=== PATIENT | male | born 1930 | race Caucasian/White ===

== ENCOUNTER 2021-03-18 10:53 | Inpatient (IN) | payer MEDICARE ==
[2021-03-18 11:42] LABS: #Lymphocytes 0.7 thou/uL (1.20-3.40); #Monocytes 0.5 thou/uL (0.11-0.59); #Neutrophils 8.6 thou/uL (1.40-6.50); %Eosinophils 0.1 % (0.0-10.0); %Monocytes 5.1 % (0.0-10.0); %Neutrophils 87.8 % (42.0-75.0); Hemoglobin 11.3 g/dL (14.0-18.0); Mean Corpuscular HGB CONC 32.3 g/dL (32.0-36.0); Mean Corpuscular Hemoglobin 27.4 pg (27.0-31.0); Mean Platelet Volume 10.2 fL (7.4-10.4); Platelet Count 112 thou/uL (130-400); RBC Distribution Width 18.7 % (11.5-14.5); Red Blood Cell (RBC) Count 4.13 mill/uL (4.70-6.10); White Blood Cell (WBC) Count 9.9 thou/uL (4.8-10.8)
[2021-03-18] MEDS ORDERED: Iopamidol-370 76% 500 ML 1 ML ONE (11:54)
[2021-03-18 12:06] LABS: ALT (SGPT) 19 U/L (8-55); AST (SGOT) 23 U/L (5-34); Albumin 3.4 g/dL (3.4-4.8); Alkaline Phosphatase 203 U/L (40-110); Anion Gap 14 mmol/L (10-20); BUN (Urea Nitrogen) 21 mg/dL (8.4-25.7); Bilirubin, Total 1.2 mg/dL (0.2-1.2); Calc. Creatinine Clearance 0 mL/min (70-130); Calcium 9.2 mg/dL (7.8-10.44); Carbon Dioxide 25 mmol/L (23-31); Chloride 105 mmol/L (98-107); Globulin 2.9 g/dL (2.4-3.5); Glucose 205 mg/dL (83-110); Protein, Total 6.3 g/dL (5.8-8.1); Sodium 140 mmol/L (136-145)
[2021-03-18 12:37] LABS: CKMB 1.7 ng/mL (0-6.6)
[2021-03-18] MEDS ORDERED: Aspirin Chewable 81 MG TAB ONE (13:52)
[2021-03-18] MEDS ORDERED: Furosemide 40 MG/4 ML VIAL ONE (13:52)
[2021-03-18 15:29] LABS: Troponin I 0.032 ng/mL (< 0.028)
[2021-03-18] MEDS ORDERED: Dextrose 5% in Water 1,000 ML IV PRN (15:34)
[2021-03-18] MEDS ORDERED: Dextrose 50% Abboject 50 ML SYRINGE SLOW IVP PRN (15:34)
[2021-03-18] MEDS ORDERED: Senokot S 8.6-50 MG TAB PO PRN (15:38)
[2021-03-18] MEDS ORDERED: Bisacodyl 5 MG TAB PO PRN (15:38)
[2021-03-18] MEDS ORDERED: Ondansetron PF 4 MG/2 ML Vial IVP PRN (15:38)
[2021-03-18] MEDS ORDERED: Acetaminophen 325 MG TAB PO PRN (15:38)
[2021-03-18] MEDS ORDERED: Ondansetron ODT 4 MG TAB PO PRN (15:38)
[2021-03-18] MEDS ORDERED: HumaLOG 300 UNITS/3 ML VIAL SC PRN (15:40)
[2021-03-18] MEDS ORDERED: cefTRIAXone Sodium 1,000 MG in Syringe 0 ML IVPB SCH (15:45)
[2021-03-18] MEDS ORDERED: Doxycycline 100 MG CAP PO SCH (16:00)
[2021-03-18 18:05] LABS: Troponin I 0.034 ng/mL (< 0.028)
[2021-03-18] MEDS: cefTRIAXone\\ROCEPHIN 1 GM, Admixture Fee 1 EACH in Sodium Chloride 0.9% 100 ML IVPB SCH (18:05)
[2021-03-18] MEDS: Doxycycline 100 MG CAP PO SCH (20:39)
[2021-03-19 05:26] LABS: #Monocytes 0.7 thou/uL (0.11-0.59); #Neutrophils 8.8 thou/uL (1.40-6.50); %Basophils 0.1 % (0.0-1.0); %Eosinophils 0.1 % (0.0-10.0); %Lymphocytes 9.7 % (21.0-51.0); %Monocytes 6.5 % (0.0-10.0); %Neutrophils 83.6 % (42.0-75.0); Hemoglobin 10.9 g/dL (14.0-18.0); Mean Corpuscular HGB CONC 30.8 g/dL (32.0-36.0); Mean Corpuscular Hemoglobin 26.6 pg (27.0-31.0); Mean Corpuscular Volume 86.1 fL (78.0-98.0); Mean Platelet Volume 9.7 fL (7.4-10.4); Platelet Count 131 thou/uL (130-400); RBC Distribution Width 18.7 % (11.5-14.5); Red Blood Cell (RBC) Count 4.09 mill/uL (4.70-6.10); White Blood Cell (WBC) Count 10.5 thou/uL (4.8-10.8)
[2021-03-19 05:52] LABS: Anion Gap 11 mmol/L (10-20); BUN (Urea Nitrogen) 28 mg/dL (8.4-25.7); Calc. Creatinine Clearance 58 mL/min (70-130); Calcium 8.9 mg/dL (7.8-10.44); Carbon Dioxide 28 mmol/L (23-31); Chloride 105 mmol/L (98-107); Glucose 142 mg/dL (83-110); Iron 16 ug/dL (65-175); Iron Binding Capacity, Total 255 mcg/dL (261-462); Potassium 3.9 mmol/L (3.5-5.1); Sodium 140 mmol/L (136-145); Transferrin, Serum 204 mg/dL (163-344)
[2021-03-19 06:12] LABS: Ferritin 36.19 ng/mL (22-322); Thyroid Stimulating Hormone 0.7613 uIU/mL (0.35-4.94)
[2021-03-19] MEDS ORDERED: Levothyroxine Sodium 50 MCG TAB PO SCH (08:30)
[2021-03-19] MEDS: Allopurinol 100 MG TAB PO SCH (09:50)
[2021-03-19] MEDS: Doxycycline 100 MG CAP PO SCH ×2 (09:50→20:30)
[2021-03-19] MEDS: Aspirin Chewable 81 MG TAB PO SCH (09:51)
[2021-03-19] MEDS: Sotalol HCl 80 MG TAB PO SCH ×2 (09:51→20:31)
[2021-03-19] MEDS: Finasteride 5 MG TAB PO SCH (09:51)
[2021-03-19] MEDS ORDERED: Furosemide 40 MG/4 ML VIAL SLOW IVP SCH (14:30)
[2021-03-19] MEDS: Glimepiride 1 MG TAB PO SCH (15:07)
[2021-03-19] MEDS: cefTRIAXone\\ROCEPHIN 1 GM, Admixture Fee 1 EACH in Sodium Chloride 0.9% 100 ML IVPB SCH (18:03)
[2021-03-19] MEDS: Atorvastatin Calcium 40 MG TAB PO SCH (20:30)
[2021-03-19] MEDS: guaiFENesin ER 600 MG TAB PO SCH (20:30)
[2021-03-19] MEDS: Tamsulosin HCl 0.4 MG CAP PO SCH (20:31)
[2021-03-20] MEDS: Levothyroxine Sodium 50 MCG TAB PO SCH (06:14)
[2021-03-20] MEDS: Sotalol HCl 80 MG TAB PO SCH ×2 (08:37→21:57)
[2021-03-20] MEDS: Aspirin Chewable 81 MG TAB PO SCH (08:37)
[2021-03-20] MEDS: guaiFENesin ER 600 MG TAB PO SCH ×2 (08:38→21:57)
[2021-03-20] MEDS: Finasteride 5 MG TAB PO SCH (08:38)
[2021-03-20] MEDS: Doxycycline 100 MG CAP PO SCH ×2 (08:38→21:57)
[2021-03-20] MEDS: Allopurinol 100 MG TAB PO SCH (08:38)
[2021-03-20] MEDS: Glimepiride 1 MG TAB PO SCH (08:38)
[2021-03-20] MEDS ORDERED: Furosemide 40 MG/4 ML VIAL SLOW IVP SCH ×2 (09:30→14:00)
[2021-03-20] MEDS ORDERED: Ferrous Sulfate 325 MG TAB PO SCH (10:15)
[2021-03-20] MEDS: cefTRIAXone\\ROCEPHIN 1 GM, Admixture Fee 1 EACH in Sodium Chloride 0.9% 100 ML IVPB SCH (15:54)
[2021-03-20] MEDS: Ferrous Sulfate 325 MG TAB PO SCH (15:54)
[2021-03-20] MEDS ORDERED: Communication Order-Pharmacy FS SCH (17:00)
[2021-03-20] MEDS: Atorvastatin Calcium 40 MG TAB PO SCH (21:57)
[2021-03-20] MEDS: Tamsulosin HCl 0.4 MG CAP PO SCH (21:58)
[2021-03-21 06:07] LABS: Anion Gap 7 mmol/L (10-20); BUN (Urea Nitrogen) 29 mg/dL (8.4-25.7); Calc. Creatinine Clearance 60 mL/min (70-130); Calcium 8.9 mg/dL (7.8-10.44); Carbon Dioxide 35 mmol/L (23-31); Chloride 101 mmol/L (98-107); Glucose 88 mg/dL (83-110); Potassium 3.4 mmol/L (3.5-5.1); Sodium 140 mmol/L (136-145)
[2021-03-21] MEDS: Levothyroxine Sodium 50 MCG TAB PO SCH (06:08)
[2021-03-21] MEDS: Ferrous Sulfate 325 MG TAB PO SCH ×2 (06:08→15:44)
[2021-03-21] MEDS: Doxycycline 100 MG CAP PO SCH ×2 (06:09→20:48)
[2021-03-21] MEDS: Aspirin Chewable 81 MG TAB PO SCH (06:09)
[2021-03-21] MEDS: Allopurinol 100 MG TAB PO SCH (06:09)
[2021-03-21] MEDS: guaiFENesin ER 600 MG TAB PO SCH ×2 (06:10→20:48)
[2021-03-21] MEDS: Finasteride 5 MG TAB PO SCH (06:10)
[2021-03-21] MEDS: Sotalol HCl 80 MG TAB PO SCH ×2 (06:10→20:48)
[2021-03-21] MEDS ORDERED: Potassium Chloride 20 MEQ TAB PO SCH (08:00)
[2021-03-21] MEDS: Furosemide 40 MG/4 ML VIAL SLOW IVP SCH ×2 (08:45→12:48)
[2021-03-21] MEDS: Cefdinir 300 MG CAP PO SCH ×2 (08:45→20:48)
[2021-03-21] MEDS ORDERED: Communication Order-Pharmacy FS SCH (16:45)
[2021-03-21] MEDS: Atorvastatin Calcium 40 MG TAB PO SCH (20:48)
[2021-03-21] MEDS: Tamsulosin HCl 0.4 MG CAP PO SCH (20:49)
[2021-03-21] MEDS ORDERED: acetaZOLAMIDE Sodium 500 mg Vial IVP SCH (21:15)
[2021-03-22] MEDS: Levothyroxine Sodium 50 MCG TAB PO SCH (06:00)
[2021-03-22] MEDS: Allopurinol 100 MG TAB PO SCH (06:00)
[2021-03-22] MEDS: Aspirin Chewable 81 MG TAB PO SCH (06:00)
[2021-03-22] MEDS: Cefdinir 300 MG CAP PO SCH (06:00)
[2021-03-22] MEDS: Finasteride 5 MG TAB PO SCH (06:01)
[2021-03-22] MEDS: Doxycycline 100 MG CAP PO SCH (06:01)
[2021-03-22] MEDS: guaiFENesin ER 600 MG TAB PO SCH ×2 (06:01→21:10)
[2021-03-22] MEDS: Sotalol HCl 80 MG TAB PO SCH (06:01)
[2021-03-22] MEDS: Ferrous Sulfate 325 MG TAB PO SCH ×2 (07:41→18:16)
[2021-03-22] MEDS: Furosemide 40 MG/4 ML VIAL SLOW IVP SCH (07:41)
[2021-03-22] MEDS ORDERED: Heparin 10,000 UNITS/ 10 ML VIAL ONE (11:40)
[2021-03-22] MEDS ORDERED: Nitroglycerin 100MG/250ML BOT 0 ML ONE (11:40)
[2021-03-22] MEDS ORDERED: Lidocaine 1% (PF) 30 ML VIAL ONE (11:40)
[2021-03-22] MEDS ORDERED: Verapamil 5 MG/2 ML VIAL ONE (11:40)
[2021-03-22] MEDS ORDERED: Iopamidol 370 76% 100 ML VIAL ONE (11:49)
[2021-03-22] MEDS ORDERED: Iopamidol 370 76% 50 ML VIAL FS ONE (11:49)
[2021-03-22] MEDS ORDERED: Midazolam HCl 2 mg/2 ml Vial ONE (12:32)
[2021-03-22 13:59] VITALS: BMI 25.7
[2021-03-22] MEDS ORDERED: Sodium Chloride 0.9% 200 ML IV PRN (14:26)
[2021-03-22] MEDS ORDERED: Nitroglycerin 0.4 MG TAB (25 Tab Bottle) SL PRN (14:26)
[2021-03-22] MEDS ORDERED: Acetaminophen/Codeine 30-300mg Tablet PO PRN ×2 (14:26)
[2021-03-22] MEDS: Clopidogrel Bisulfate 75 MG TAB PO SCH (14:33)
[2021-03-22] MEDS: Atorvastatin Calcium 40 MG TAB PO SCH (21:10)
[2021-03-22] MEDS: Tamsulosin HCl 0.4 MG CAP PO SCH (21:10)
[2021-03-23] MEDS: Levothyroxine Sodium 50 MCG TAB PO SCH (05:15)
[2021-03-23] MEDS ORDERED: Furosemide 40 MG TAB PO SCH (07:30)
[2021-03-23] MEDS: Aspirin Chewable 81 MG TAB PO SCH (08:12)
[2021-03-23] MEDS: Ferrous Sulfate 325 MG TAB PO SCH (08:13)
[2021-03-23] MEDS: Finasteride 5 MG TAB PO SCH (08:13)
[2021-03-23] MEDS: guaiFENesin ER 600 MG TAB PO SCH (08:13)
[2021-03-23] MEDS: Allopurinol 100 MG TAB PO SCH (08:13)
[2021-03-23 12:51] VITALS: BP 128/64; TEMP 97.7
[2021-03-23] MEDS: Clopidogrel Bisulfate 75 MG TAB PO SCH (14:12)
[2021-03-23] MEDS ORDERED: Carvedilol 6.25 MG TAB PO SCH (17:00)
== END 2021-03-23 15:33 | disposition home or self-care (01) | DRG 287 ==
LOC: ERS 10:53 → ERHOLD 12:46 → INTOOBSV 12:46 → 2SW 13:30 → OBSVTOIN 03-21 11:29
PROVIDERS: ADMIT Internal Medicine; ATTEND Internal Medicine
PROC: 4A023N7 Measurement of Cardiac Sampling and Pressure, Left Heart, Percutaneous Approach (ICD-10-PCS; principal; 2021-03-22)
PROC: B2111ZZ Fluoroscopy of Multiple Coronary Arteries using Low Osmolar Contrast (ICD-10-PCS; 2021-03-22)
PROC: B2181ZZ Fluoroscopy of Left Internal Mammary Bypass Graft using Low Osmolar Contrast (ICD-10-PCS; 2021-03-22)
PROC: B2131ZZ Fluoroscopy of Multiple Coronary Artery Bypass Grafts using Low Osmolar Contrast (ICD-10-PCS; 2021-03-22)
PROC: B2151ZZ Fluoroscopy of Left Heart using Low Osmolar Contrast (ICD-10-PCS; 2021-03-22)
PROC: B3101ZZ Fluoroscopy of Thoracic Aorta using Low Osmolar Contrast (ICD-10-PCS; 2021-03-22)
PROC: 4A033BC Measurement of Arterial Pressure, Coronary, Percutaneous Approach (ICD-10-PCS; 2021-03-22)
DX: I11.0 Hypertensive heart disease with heart failure (principal); I44.2 Atrioventricular block, complete; I48.20 Chronic atrial fibrillation, unspecified; E87.3 Alkalosis; E44.1 Mild protein-calorie malnutrition; E78.00 Pure hypercholesterolemia, unspecified; E78.5 Hyperlipidemia, unspecified; E11.9 Type 2 diabetes mellitus without complications; E03.9 Hypothyroidism, unspecified; I08.0 Rheumatic disorders of both mitral and aortic valves; I25.10 Atherosclerotic heart disease of native coronary artery without angina pectoris; D52.9 Folate deficiency anemia, unspecified; D69.6 Thrombocytopenia, unspecified; Z96.651 Presence of right artificial knee joint; I42.9 Cardiomyopathy, unspecified; I50.23 Acute on chronic systolic (congestive) heart failure; Z79.84 Long term (current) use of oral hypoglycemic drugs; Z79.82 Long term (current) use of aspirin; Z79.890 Hormone replacement therapy; Z79.899 Other long term (current) drug therapy; Z95.1 Presence of aortocoronary bypass graft; Z87.891 Personal history of nicotine dependence; Z95.0 Presence of cardiac pacemaker; Z68.25 Body mass index [BMI] 25.0-25.9, adult
CPT/HCPCS: 36415; 36416; 71045; 71275; 80048; 80053; 82553; 82607; 82728; 82746; 83540; 83550; 83880; 84075; 84443; 84466; 84484; 85025; 85379; 87070; 87205; 93005; 93306; 93459; 93567; 93798; 96365; 96374; 96375; 99152; 99153; G0378; J0696; J1120; J1644; J1940; J2001; J2250; J3490; Q9967; U0003; U0005

== ENCOUNTER 2021-04-11 04:08 | Inpatient (IN) | payer MEDICARE ==
[2021-04-16 11:52] VITALS: BMI 25.1
[2021-04-18 09:47] VITALS: TEMP 97.9
[2021-04-18 12:36] VITALS: BP 121/57
== END 2021-04-18 15:35 | disposition home health service (06) | DRG 378 ==
LOC: ERS 04:08 → ERHOLD 05:55 → ONC 11:49 → OBSVTOIN 04-12 15:30 → CCU 04-15 23:10 → ONC 04-16 12:17
PROVIDERS: ADMIT Internal Medicine; ATTEND Emergency Medicine
PROC: 0DB78ZX Excision of Stomach, Pylorus, Via Natural or Artificial Opening Endoscopic, Diagnostic (ICD-10-PCS; principal; 2021-04-12)
PROC: 0DBK8ZX Excision of Ascending Colon, Via Natural or Artificial Opening Endoscopic, Diagnostic (ICD-10-PCS; 2021-04-12)
PROC: 0DBC8ZX Excision of Ileocecal Valve, Via Natural or Artificial Opening Endoscopic, Diagnostic (ICD-10-PCS; 2021-04-12)
PROC: 0W3P8ZZ Control Bleeding in Gastrointestinal Tract, Via Natural or Artificial Opening Endoscopic (ICD-10-PCS; 2021-04-12)
PROC: 0DB38ZX Excision of Lower Esophagus, Via Natural or Artificial Opening Endoscopic, Diagnostic (ICD-10-PCS; 2021-04-12)
PROC: 0DJD8ZZ Inspection of Lower Intestinal Tract, Via Natural or Artificial Opening Endoscopic (ICD-10-PCS; 2021-04-13)
PROC: 0W3P8ZZ Control Bleeding in Gastrointestinal Tract, Via Natural or Artificial Opening Endoscopic (ICD-10-PCS; 2021-04-15)
DX: K29.71 Gastritis, unspecified, with bleeding (principal); D62 Acute posthemorrhagic anemia; K63.3 Ulcer of intestine; I42.9 Cardiomyopathy, unspecified; I48.19 Other persistent atrial fibrillation; K29.81 Duodenitis with bleeding; E11.9 Type 2 diabetes mellitus without complications; E03.9 Hypothyroidism, unspecified; D50.9 Iron deficiency anemia, unspecified; E78.5 Hyperlipidemia, unspecified; I50.9 Heart failure, unspecified; I11.0 Hypertensive heart disease with heart failure; K20.90 Esophagitis, unspecified without bleeding; K29.60 Other gastritis without bleeding; K29.80 Duodenitis without bleeding; K63.5 Polyp of colon; Z95.0 Presence of cardiac pacemaker; Z95.1 Presence of aortocoronary bypass graft; Z88.8 Allergy status to other drugs, medicaments and biological substances; Z79.51 Long term (current) use of inhaled steroids; Z79.82 Long term (current) use of aspirin; Z87.891 Personal history of nicotine dependence
CPT/HCPCS: 36415; 36416; 36430; 80048; 80053; 82805; 85014; 85018; 85025; 85610; 86850; 86900; 86901; 87324; 87449; 88305; 88312; 96374; 96375; 96376; C9113; G0378; J2370; J2405; J2550; J2704; J3480; P9016

== ENCOUNTER 2021-06-13 14:15 | Outpatient (CLI) | payer MEDICARE | END 2021-06-13 14:16 | disposition home or self-care (01) | LOC: BICRAD 14:15 | PROVIDERS: ATTEND Family Medicine | DX: R05 Cough (principal); I70.0 Atherosclerosis of aorta | CPT/HCPCS: 71046 ==

== ENCOUNTER 2021-06-17 20:29 | Observation (INO) | payer OTHER, MEDICARE ==
[2021-06-18] MEDS ORDERED: HYDROcodone/Acetaminophen 5/325 mg Tablet ONE (00:19)
[2021-06-18 02:19] LABS: #Eosinphils 0.1 thou/uL (0.0-0.7); #Lymphocytes 2.2 thou/uL (1.20-3.40); #Monocytes 1.4 thou/uL (0.11-0.59); %Basophils 0.1 % (0.0-1.0); %Eosinophils 0.7 % (0.0-10.0); %Lymphocytes 15.1 % (21.0-51.0); %Monocytes 9.6 % (0.0-10.0); %Neutrophils 74.6 % (42.0-75.0); Hemoglobin 10.7 g/dL (14.0-18.0); Mean Corpuscular HGB CONC 32.6 g/dL (32.0-36.0); Mean Corpuscular Volume 95.3 fL (78.0-98.0); Mean Platelet Volume 8.5 fL (7.4-10.4); Platelet Count 157 thou/uL (130-400); RBC Distribution Width 16.2 % (11.5-14.5); Red Blood Cell (RBC) Count 3.45 mill/uL (4.70-6.10); White Blood Cell (WBC) Count 14.8 thou/uL (4.8-10.8)
[2021-06-18 02:44] LABS: ALT (SGPT) 15 U/L (8-55); AST (SGOT) 18 U/L (5-34); Albumin 3.1 g/dL (3.4-4.8); Alkaline Phosphatase 112 U/L (40-110); Anion Gap 12 mmol/L (10-20); BUN (Urea Nitrogen) 33 mg/dL (8.4-25.7); Bilirubin, Total 0.6 mg/dL (0.2-1.2); Calc. Creatinine Clearance 0 mL/min (70-130); Carbon Dioxide 24 mmol/L (23-31); Chloride 106 mmol/L (98-107); Globulin 2.4 g/dL (2.4-3.5); Glucose 178 mg/dL (83-110); Potassium 3.8 mmol/L (3.5-5.1); Protein, Total 5.5 g/dL (5.8-8.1); Sodium 138 mmol/L (136-145)
[2021-06-18] MEDS ORDERED: Acetaminophen 325 MG TAB PO PRN (04:59)
[2021-06-18] MEDS ORDERED: Ondansetron PF 4 MG/2 ML Vial IVP PRN (04:59)
[2021-06-18] MEDS ORDERED: Aspirin 325 MG TAB PO SCH (05:00)
[2021-06-18 05:52] LABS: #Eosinphils 0.1 thou/uL (0.0-0.7); #Lymphocytes 2.1 thou/uL (1.20-3.40); #Monocytes 1.2 thou/uL (0.11-0.59); #Neutrophils 9.1 thou/uL (1.40-6.50); %Basophils 0.2 % (0.0-1.0); %Eosinophils 0.5 % (0.0-10.0); %Lymphocytes 16.7 % (21.0-51.0); %Monocytes 9.9 % (0.0-10.0); %Neutrophils 72.8 % (42.0-75.0); Hemoglobin 9.5 g/dL (14.0-18.0); Mean Corpuscular HGB CONC 31.9 g/dL (32.0-36.0); Mean Corpuscular Hemoglobin 30.4 pg (27.0-31.0); Mean Corpuscular Volume 95.2 fL (78.0-98.0); Mean Platelet Volume 8.9 fL (7.4-10.4); Platelet Count 131 thou/uL (130-400); RBC Distribution Width 16.1 % (11.5-14.5); Red Blood Cell (RBC) Count 3.13 mill/uL (4.70-6.10); White Blood Cell (WBC) Count 12.5 thou/uL (4.8-10.8)
[2021-06-18 06:13] LABS: SARS-CoV-2 NAA Rapid Test Not Detected (NotDetected)
[2021-06-18 06:24] LABS: Anion Gap 11 mmol/L (10-20); BUN (Urea Nitrogen) 35 mg/dL (8.4-25.7); Calc. Creatinine Clearance 0 mL/min (70-130); Calcium 8.5 mg/dL (7.8-10.44); Carbon Dioxide 23 mmol/L (23-31); Chloride 109 mmol/L (98-107); Glucose 160 mg/dL (83-110); Potassium 3.9 mmol/L (3.5-5.1); Sodium 139 mmol/L (136-145)
[2021-06-18] MEDS ORDERED: Aspirin 325 MG TAB ONE (07:11)
[2021-06-18 13:15] LABS: Troponin I 0.117 ng/mL (< 0.028)
[2021-06-18] MEDS ORDERED: Dextrose 50% Abboject 50 ML SYRINGE SLOW IVP PRN (13:35)
[2021-06-18] MEDS ORDERED: Dextrose 5% in Water 1,000 ML IV PRN (13:35)
[2021-06-18] MEDS ORDERED: HumaLOG 300 UNITS/3 ML VIAL SC PRN (13:35)
[2021-06-18] MEDS: Aspirin Chewable 81 MG TAB PO SCH ×2 (16:30→17:12)
[2021-06-18] MEDS: Sodium Chloride 0.9% 1,000 ML IV SCH (16:31)
[2021-06-18] MEDS ORDERED: traMADol HCl 50 MG TAB PO PRN (16:59)
[2021-06-18] MEDS: HYDROcodone/Acetaminophen 5/325 mg Tablet PO PRN (17:12)
[2021-06-18] MEDS ORDERED: Nitroglycerin 0.4 MG TAB (25 Tab Bottle) SL PRN (17:35)
[2021-06-18] MEDS ORDERED: Atorvastatin Calcium 40 MG TAB PO SCH (21:00)
[2021-06-18] MEDS ORDERED: Tamsulosin HCl 0.4 MG CAP PO SCH (21:00)
[2021-06-19] MEDS: HYDROcodone/Acetaminophen 5/325 mg Tablet PO PRN ×3 (04:33→15:19)
[2021-06-19] MEDS: Sodium Chloride 0.9% 1,000 ML IV SCH (04:33)
[2021-06-19] MEDS ORDERED: Levothyroxine Sodium 50 MCG TAB PO SCH (06:00)
[2021-06-19 06:01] LABS: #Eosinphils 0.3 thou/uL (0.0-0.7); #Lymphocytes 2.2 thou/uL (1.20-3.40); #Monocytes 0.8 thou/uL (0.11-0.59); #Neutrophils 5.4 thou/uL (1.40-6.50); %Basophils 0.2 % (0.0-1.0); %Eosinophils 3.2 % (0.0-10.0); %Lymphocytes 24.9 % (21.0-51.0); %Monocytes 9.5 % (0.0-10.0); %Neutrophils 62.2 % (42.0-75.0); Hemoglobin 9.1 g/dL (14.0-18.0); Mean Corpuscular HGB CONC 32.2 g/dL (32.0-36.0); Mean Corpuscular Hemoglobin 30.7 pg (27.0-31.0); Mean Corpuscular Volume 95.4 fL (78.0-98.0); Mean Platelet Volume 8.5 fL (7.4-10.4); Platelet Count 117 thou/uL (130-400); Red Blood Cell (RBC) Count 2.98 mill/uL (4.70-6.10); White Blood Cell (WBC) Count 8.6 thou/uL (4.8-10.8)
[2021-06-19 06:07] LABS: Hemoglobin A1c 5.8 % (4.0-6.0)
[2021-06-19 06:23] LABS: Anion Gap 10 mmol/L (10-20); BUN (Urea Nitrogen) 33 mg/dL (8.4-25.7); Calc. Creatinine Clearance 47 mL/min (70-130); Calcium 8.3 mg/dL (7.8-10.44); Carbon Dioxide 24 mmol/L (23-31); Cardiac Risk 4.7 (Less than 4.5); Chloride 110 mmol/L (98-107); Cholesterol 98 mg/dl (< 200 Desired); Glucose 92 mg/dL (83-110); HDL Cholesterol 21 mg/dL (>60 Neg Risk); LDL Cholesterol, Calculated 43 mg/dL; Potassium 4.3 mmol/L (3.5-5.1); Sodium 140 mmol/L (136-145); Triglycerides 169 mg/dL (Less than 150)
[2021-06-19] MEDS ORDERED: Potassium Chloride 20 MEQ TAB PO SCH (07:30)
[2021-06-19] MEDS ORDERED: Furosemide 40 MG TAB PO SCH ×2 (07:30→09:00)
[2021-06-19] MEDS ORDERED: Carvedilol 6.25 MG TAB PO SCH (08:00)
[2021-06-19] MEDS ORDERED: Ferrous Sulfate 325 MG TAB PO SCH (09:00)
[2021-06-19] MEDS ORDERED: Allopurinol 100 MG TAB PO SCH (09:00)
[2021-06-19] MEDS ORDERED: Finasteride 5 MG TAB PO SCH (09:00)
[2021-06-19] MEDS ORDERED: Aspirin Chewable 81 MG TAB PO SCH (09:00)
[2021-06-19 11:41] VITALS: BMI 25.0
[2021-06-19] MEDS ORDERED: Clopidogrel Bisulfate 75 MG TAB PO SCH (14:00)
[2021-06-19 14:19] VITALS: BP 109/55; TEMP 97.5
== END 2021-06-19 15:55 | disposition home or self-care (01) ==
LOC: ERS 20:29 → ERHOLD 06-18 03:49 → 2SW 06-18 12:28
PROVIDERS: ADMIT Internal Medicine; ATTEND Nurse Practitioner Acute Care
DX: S01.81XA Laceration without foreign body of other part of head, initial encounter (principal); S01.111A Laceration without foreign body of right eyelid and periocular area, initial encounter; S51.011A Laceration without foreign body of right elbow, initial encounter; S80.12XA Contusion of left lower leg, initial encounter; S80.11XA Contusion of right lower leg, initial encounter; N17.9 Acute kidney failure, unspecified; I48.92 Unspecified atrial flutter; I08.3 Combined rheumatic disorders of mitral, aortic and tricuspid valves; I21.A1 Myocardial infarction type 2; I48.19 Other persistent atrial fibrillation; I25.10 Atherosclerotic heart disease of native coronary artery without angina pectoris; I11.0 Hypertensive heart disease with heart failure; I50.42 Chronic combined systolic (congestive) and diastolic (congestive) heart failure; I65.23 Occlusion and stenosis of bilateral carotid arteries; D64.9 Anemia, unspecified; E78.5 Hyperlipidemia, unspecified; I42.9 Cardiomyopathy, unspecified; R55 Syncope and collapse; E44.0 Moderate protein-calorie malnutrition; Z68.25 Body mass index [BMI] 25.0-25.9, adult; Z20.822 Contact with and (suspected) exposure to COVID-19; Z95.810 Presence of automatic (implantable) cardiac defibrillator; Z95.1 Presence of aortocoronary bypass graft; Z88.8 Allergy status to other drugs, medicaments and biological substances; Z96.651 Presence of right artificial knee joint; Z79.52 Long term (current) use of systemic steroids; Z79.02 Long term (current) use of antithrombotics/antiplatelets; Z98.890 Other specified postprocedural states; Z79.82 Long term (current) use of aspirin; Z79.899 Other long term (current) drug therapy; W01.0XXA Fall on same level from slipping, tripping and stumbling without subsequent striking against object, initial encounter; Y93.01 Activity, walking, marching and hiking; Y92.008 Other place in unspecified non-institutional (private) residence as the place of occurrence of the external cause
CPT/HCPCS: 70450; 71045; 72125; 72170; 73552; 80048 ×2; 80053; 80061; 82553; 82962 ×2; 83036; 83880 ×2; 84484 ×2; 85025 ×3; 93005; 93306; 93880; 94760; 97116; 97139; G0378 ×3; U0002; 12002; 36415; 36416; J1815; J7050

== ENCOUNTER 2021-08-02 13:29 | Outpatient (CLI) | payer MEDICARE | END 2021-08-02 13:30 | disposition home or self-care (01) | LOC: BICCT 13:29 | PROVIDERS: ATTEND Thoracic Surgery (Cardiothoracic Vascular Surgery) | DX: I65.23 Occlusion and stenosis of bilateral carotid arteries (principal) | CPT/HCPCS: 70498 ==

== ENCOUNTER 2021-09-03 10:09 | Outpatient (CLI) | payer MEDICARE | END 2021-09-03 10:10 | disposition home or self-care (01) | LOC: BICMAMMO 10:09 | PROVIDERS: ATTEND Family Medicine | DX: N63.42 Unspecified lump in left breast, subareolar (principal) | CPT/HCPCS: 77066; G0279 ==

== ENCOUNTER 2021-10-10 13:50 | Outpatient (CLI) | payer MEDICARE ==
[2021-10-10 15:16] LABS: Anion Gap 15 mmol/L (10-20); BUN (Urea Nitrogen) 22 mg/dL (8.4-25.7); Calc. Creatinine Clearance 0 mL/min (70-130); Calcium 8.9 mg/dL (7.8-10.44); Carbon Dioxide 23 mmol/L (23-31); Chloride 108 mmol/L (98-107); Glucose 167 mg/dL (83-110); Potassium 4.7 mmol/L (3.5-5.1); Sodium 141 mmol/L (136-145)
[2021-10-10 15:36] LABS: Hemoglobin 11.5 g/dL (13.5-17.5); Mean Corpuscular HGB CONC 31.2 g/dL (32.0-36.0); Mean Corpuscular Hemoglobin 29.9 pg (27.0-33.0); Mean Corpuscular Volume 96.1 fl (81.2-95.1); Mean Platelet Volume 10.7 fl (7.4-10.4); Platelet Count 136 10x3/uL (150-450); RBC Distribution Width 14.9 % (11.5-14.5); Red Blood Cell (RBC) Count 3.84 10x6/uL (4.32-5.72); White Blood Cell (WBC) Count 6.9 10x3/uL (3.5-10.5)
[2021-10-11 13:39] LABS: SARS-CoV-2 PCR by NAA Not Detected (NotDetected)
== END 2021-10-10 13:51 | disposition home or self-care (01) ==
LOC: LABBT 13:50
PROVIDERS: ATTEND Thoracic Surgery (Cardiothoracic Vascular Surgery)
DX: Z01.812 Encounter for preprocedural laboratory examination (principal); I65.23 Occlusion and stenosis of bilateral carotid arteries; Z20.822 Contact with and (suspected) exposure to COVID-19
CPT/HCPCS: 80048; 85027; U0003; U0005

== ENCOUNTER 2021-10-10 14:15 | Inpatient (IN) | payer MEDICARE ==
[2021-10-12] MEDS ORDERED: EPINEPHrine 1 MG/ML AMP ONE (09:36)
[2021-10-12] MEDS ORDERED: Dexamethasone 4 mg/ml Vial ONE (09:36)
[2021-10-12] MEDS ORDERED: Protamine Sulfate 50 MG/5 ML VIAL ONE ×2 (09:36→11:12)
[2021-10-12] MEDS ORDERED: Heparin 5,000 UNITS/ML VIAL ONE (09:36)
[2021-10-12] MEDS ORDERED: Bupivacaine PF 0.5% 30 ML VIAL ONE (09:36)
[2021-10-12] MEDS ORDERED: Fentanyl 100 MCG/2 ML VIAL ONE (09:38)
[2021-10-12] MEDS ORDERED: ceFAZolin 2 GM/Dextrose 50 ML IVPB ONE (09:52)
[2021-10-12] MEDS ORDERED: Calcium Chloride 1 GM/10 ML Abboject SYRINGE ONE (10:13)
[2021-10-12] MEDS ORDERED: Ondansetron PF 4 MG/2 ML Vial ONE (10:13)
[2021-10-12] MEDS ORDERED: Labetalol HCl 100 MG/20 ML VIAL ONE (10:13)
[2021-10-12] MEDS ORDERED: Lidocaine 1% PF 5 ML VIAL ONE (10:13)
[2021-10-12] MEDS ORDERED: PROPOFOL 200 MG/20 ML VIAL ONE (10:13)
[2021-10-12] MEDS ORDERED: Glycopyrrolate 0.2 MG/ML 5 ML SYRINGE ONE (10:13)
[2021-10-12] MEDS ORDERED: Phenylephrine 10 MG/ML VIAL ONE (10:13)
[2021-10-12] MEDS ORDERED: Dexamethasone 20 MG/5 ML VIAL ONE (10:13)
[2021-10-12] MEDS ORDERED: Rocuronium Bromide 10 MG/ML (10ML VIAL) ONE (10:13)
[2021-10-12] MEDS ORDERED: hydrALAZINE 20 MG/ML VIAL ONE (11:43)
[2021-10-12] MEDS ORDERED: hydrALAZINE 20 MG/ML VIAL SLOW IVP PRN (11:58)
[2021-10-12] MEDS ORDERED: Nitroglycerin 50 MG/250 ML BOT 250 ML IVPB PRN (11:58)
[2021-10-12] MEDS ORDERED: traMADol HCl 50 MG TAB PO PRN ×2 (11:58)
[2021-10-12] MEDS ORDERED: Ondansetron HCl/PF 4 MG/2 ML Vial IVP PRN (11:58)
[2021-10-12] MEDS ORDERED: Acetaminophen 325 MG TAB PO PRN (11:58)
[2021-10-12] MEDS ORDERED: Promethazine HCl 25 MG/ML VIAL IM PRN (11:58)
[2021-10-12] MEDS ORDERED: Phenylephrine 40 MG in Sodium Chloride 0.9% 250 ML 250 ML IVPB PRN (11:58)
[2021-10-12] MEDS ORDERED: Ondansetron PF 4 MG/2 ML Vial IVP PRN (11:58)
[2021-10-12] MEDS ORDERED: Fentanyl 100 MCG/2 ML VIAL SLOW IVP PRN (11:58)
[2021-10-12 14:02] VITALS: BP 172/51
[2021-10-12 17:06] VITALS: BMI 26.2
[2021-10-12] MEDS: Sodium Chloride 0.9% 1,000 ML IV SCH ×2 (17:59→22:00)
[2021-10-12] MEDS: Carvedilol 6.25 MG TAB PO SCH (18:21)
[2021-10-12] MEDS: ceFAZolin 2 GM/Dextrose 50 ML 2 GM in Premix Bag 1 BAG IVPB SCH (19:14)
[2021-10-12] MEDS ORDERED: Tamsulosin HCl 0.4 MG CAP PO SCH (21:00)
[2021-10-12] MEDS ORDERED: Atorvastatin Calcium 40 MG TAB PO SCH (21:00)
[2021-10-13] MEDS: ceFAZolin 2 GM/Dextrose 50 ML 2 GM in Premix Bag 1 BAG IVPB SCH ×2 (02:37→10:25)
[2021-10-13] MEDS ORDERED: Levothyroxine Sodium 50 MCG TAB PO SCH (06:00)
[2021-10-13] MEDS ORDERED: Potassium Chloride 20 MEQ TAB PO SCH (07:30)
[2021-10-13] MEDS ORDERED: Furosemide 40 MG TAB PO SCH (07:30)
[2021-10-13] MEDS ORDERED: Allopurinol 100 MG TAB PO SCH (09:00)
[2021-10-13] MEDS ORDERED: Aspirin Chewable 81 MG TAB PO SCH (09:00)
[2021-10-13] MEDS ORDERED: Ferrous Sulfate 325 MG TAB PO SCH (09:00)
[2021-10-13] MEDS: Carvedilol 6.25 MG TAB PO SCH (09:50)
[2021-10-13 11:34] VITALS: TEMP 97.5
[2021-10-13] MEDS ORDERED: Clopidogrel Bisulfate 75 MG TAB PO SCH (21:00)
== END 2021-10-13 13:50 | disposition home or self-care (01) | DRG 39 ==
LOC: SURG A 10-12 06:50 → IMCU/EMU 10-12 16:39
PROVIDERS: ADMIT Thoracic Surgery (Cardiothoracic Vascular Surgery); ATTEND Thoracic Surgery (Cardiothoracic Vascular Surgery)
PROC: 03CM0ZZ Extirpation of Matter from Right External Carotid Artery, Open Approach (ICD-10-PCS; principal; 2021-10-12)
PROC: 03UM0KZ Supplement Right External Carotid Artery with Nonautologous Tissue Substitute, Open Approach (ICD-10-PCS; 2021-10-12)
DX: I65.23 Occlusion and stenosis of bilateral carotid arteries (principal); Z20.822 Contact with and (suspected) exposure to COVID-19; N41.9 Inflammatory disease of prostate, unspecified; Z96.652 Presence of left artificial knee joint; I25.10 Atherosclerotic heart disease of native coronary artery without angina pectoris; I48.91 Unspecified atrial fibrillation; I50.9 Heart failure, unspecified; J44.9 Chronic obstructive pulmonary disease, unspecified; I11.0 Hypertensive heart disease with heart failure; M10.9 Gout, unspecified; F17.210 Nicotine dependence, cigarettes, uncomplicated; N40.0 Benign prostatic hyperplasia without lower urinary tract symptoms; E11.9 Type 2 diabetes mellitus without complications; Z88.8 Allergy status to other drugs, medicaments and biological substances; Z98.49 Cataract extraction status, unspecified eye; Z90.89 Acquired absence of other organs; Z95.0 Presence of cardiac pacemaker; Z95.1 Presence of aortocoronary bypass graft; Z87.11 Personal history of peptic ulcer disease
CPT/HCPCS: C1713; C1768; C1776; J0171; J0360; J0690; J1100; J1644; J2370; J2405; J2704; J2720; J3010; J7050; S0020

== ENCOUNTER 2022-01-29 11:47 | Outpatient (CLI) | payer MEDICARE, OTHER ==
[2022-01-29 12:29] LABS: Mean Corpuscular HGB CONC 32.7 g/dL (32.0-36.0); Mean Corpuscular Hemoglobin 30.2 pg (27.0-33.0); Mean Corpuscular Volume 92.4 fl (81.2-95.1); Mean Platelet Volume 10.3 fl (7.4-10.4); Platelet Count 115 10x3/uL (150-450); RBC Distribution Width 15.3 % (11.5-14.5); Red Blood Cell (RBC) Count 3.97 10x6/uL (4.32-5.72); White Blood Cell (WBC) Count 6.7 10x3/uL (3.5-10.5)
[2022-01-29 12:51] LABS: Anion Gap 12 mmol/L (10-20); BUN (Urea Nitrogen) 21 mg/dL (8.4-25.7); Calc. Creatinine Clearance 0 mL/min (70-130); Calcium 8.7 mg/dL (7.8-10.44); Carbon Dioxide 25 mmol/L (23-31); Chloride 108 mmol/L (98-107); Glucose 181 mg/dL (83-110); Potassium 4.7 mmol/L (3.5-5.1); Sodium 140 mmol/L (136-145)
[2022-01-29 23:01] LABS: SARS-CoV-2 PCR by NAA Not Detected (NotDetected)
== END 2022-01-29 11:48 | disposition home or self-care (01) ==
LOC: LABBT 11:47
PROVIDERS: ATTEND Thoracic Surgery (Cardiothoracic Vascular Surgery)
DX: Z01.812 Encounter for preprocedural laboratory examination (principal); I65.22 Occlusion and stenosis of left carotid artery; Z20.822 Contact with and (suspected) exposure to COVID-19
CPT/HCPCS: 80048; 85027; U0003; U0005

== ENCOUNTER 2022-01-29 16:30 | Inpatient (IN) | payer MEDICARE ==
[2022-01-30 11:41] VITALS: BMI 27.9
[2022-02-01] MEDS ORDERED: Heparin 5,000 UNITS/ML VIAL ONE (06:34)
[2022-02-01] MEDS ORDERED: Protamine Sulfate 50 MG/5 ML VIAL ONE (06:34)
[2022-02-01] MEDS ORDERED: Bupivacaine 0.25% 10 ML VIAL ONE (06:34)
[2022-02-01] MEDS ORDERED: EPINEPHrine 1 MG/ML AMP ONE (06:34)
[2022-02-01] MEDS ORDERED: fentaNYL Citrate/PF 100 MCG/2 ML SYRINGE ONE (06:49)
[2022-02-01] MEDS ORDERED: Lidocaine 1% MPF 2 ML VIAL ONE (07:07)
[2022-02-01] MEDS ORDERED: ceFAZolin (BATCH) 2 GM/100 ML BAG ONE (07:16)
[2022-02-01] MEDS ORDERED: PROPOFOL 200 MG/20 ML VIAL ONE (07:29)
[2022-02-01] MEDS ORDERED: Dexamethasone 20 MG/5 ML VIAL ONE (07:29)
[2022-02-01] MEDS ORDERED: Lidocaine 1% PF 5 ML VIAL ONE (07:29)
[2022-02-01] MEDS ORDERED: Ondansetron PF 4 MG/2 ML Vial ONE (07:29)
[2022-02-01] MEDS ORDERED: PHENYLEPHRINE-NS 100 MCG/ML 10 ML SYRINGE ONE (07:29)
[2022-02-01] MEDS ORDERED: Glycopyrrolate 0.2 MG/ML 5 ML SYRINGE ONE (07:29)
[2022-02-01] MEDS ORDERED: Rocuronium Bromide 10 MG/ML (10ML VIAL) ONE (07:29)
[2022-02-01] MEDS ORDERED: Nitroglycerin 50 MG/250 ML BOT 250 ML ONE (09:31)
[2022-02-01] MEDS ORDERED: Nitroglycerin 0.4 MG TAB (25 Tab Bottle) SL PRN (10:37)
[2022-02-01] MEDS ORDERED: hydrALAZINE 20 MG/ML VIAL SLOW IVP PRN (10:37)
[2022-02-01] MEDS ORDERED: Fentanyl 100 MCG/2 ML VIAL SLOW IVP PRN (10:37)
[2022-02-01] MEDS ORDERED: traMADol HCl 50 MG TAB PO PRN ×2 (10:37)
[2022-02-01] MEDS ORDERED: Nitroglycerin 50 MG/250 ML BOT 250 ML IVPB PRN (10:37)
[2022-02-01] MEDS ORDERED: Ondansetron PF 4 MG/2 ML Vial IVP PRN (10:37)
[2022-02-01] MEDS ORDERED: Phenylephrine 40 MG in Sodium Chloride 0.9% 250 ML 250 ML IVPB PRN (10:37)
[2022-02-01] MEDS ORDERED: Acetaminophen 325 MG TAB PO PRN (10:37)
[2022-02-01] MEDS: Sodium Chloride 0.9% 1,000 ML IV SCH ×2 (11:34→19:18)
[2022-02-01] MEDS: ceFAZolin (BATCH) 2 GM in Premix Bag 1 BAG IVPB SCH ×2 (15:53→23:09)
[2022-02-01] MEDS: Carvedilol 6.25 MG TAB PO SCH (16:03)
[2022-02-01 16:04] VITALS: BP 114/66
[2022-02-01] MEDS: Insulin Regular 300 UNITS/3 ML VIAL SC PRN ×2 (17:28→20:40)
[2022-02-01] MEDS ORDERED: Atorvastatin Calcium 40 MG TAB PO SCH (21:00)
[2022-02-01] MEDS ORDERED: Tamsulosin HCl 0.4 MG CAP PO SCH (21:00)
[2022-02-02] MEDS: Insulin Regular 300 UNITS/3 ML VIAL SC PRN (05:33)
[2022-02-02] MEDS ORDERED: Levothyroxine Sodium 50 MCG TAB PO SCH (06:00)
[2022-02-02] MEDS ORDERED: Bismuth Subs 17.5 mg/mL Susp PO PRN (06:34)
[2022-02-02] MEDS ORDERED: Furosemide 20 MG/2 ML VIAL SLOW IVP SCH (06:45)
[2022-02-02] MEDS: Carvedilol 6.25 MG TAB PO SCH (06:58)
[2022-02-02] MEDS: ceFAZolin (BATCH) 2 GM in Premix Bag 1 BAG IVPB SCH (06:58)
[2022-02-02] MEDS: Sodium Chloride 0.9% 1,000 ML IV SCH (07:20)
[2022-02-02 07:23] VITALS: TEMP 98.6
[2022-02-02] MEDS ORDERED: Furosemide 40 MG TAB PO SCH (09:00)
[2022-02-02] MEDS ORDERED: Ferrous Sulfate 325 MG TAB PO SCH (09:00)
[2022-02-02] MEDS ORDERED: Aspirin Chewable 81 MG TAB PO SCH (09:00)
[2022-02-02] MEDS ORDERED: Glimepiride 1 MG TAB PO SCH (09:00)
[2022-02-02] MEDS ORDERED: Potassium Chloride 20 MEQ TAB PO SCH (09:00)
[2022-02-02] MEDS ORDERED: Allopurinol 100 MG TAB PO SCH (09:00)
== END 2022-02-02 10:25 | disposition home or self-care (01) | DRG 38 ==
LOC: SURG A 02-01 06:14 → CCU 02-01 10:30
PROVIDERS: ADMIT Thoracic Surgery (Cardiothoracic Vascular Surgery); ATTEND Thoracic Surgery (Cardiothoracic Vascular Surgery)
PROC: 03CJ0ZZ Extirpation of Matter from Left Common Carotid Artery, Open Approach (ICD-10-PCS; principal; 2022-02-01)
PROC: 03CL0ZZ Extirpation of Matter from Left Internal Carotid Artery, Open Approach (ICD-10-PCS; 2022-02-01)
PROC: 03CN0ZZ Extirpation of Matter from Left External Carotid Artery, Open Approach (ICD-10-PCS; 2022-02-01)
PROC: 03UJ0KZ Supplement Left Common Carotid Artery with Nonautologous Tissue Substitute, Open Approach (ICD-10-PCS; 2022-02-01)
PROC: 03UL0KZ Supplement Left Internal Carotid Artery with Nonautologous Tissue Substitute, Open Approach (ICD-10-PCS; 2022-02-01)
DX: I65.23 Occlusion and stenosis of bilateral carotid arteries (principal); I50.20 Unspecified systolic (congestive) heart failure; I25.10 Atherosclerotic heart disease of native coronary artery without angina pectoris; J44.9 Chronic obstructive pulmonary disease, unspecified; E78.2 Mixed hyperlipidemia; M10.9 Gout, unspecified; E11.9 Type 2 diabetes mellitus without complications; E03.9 Hypothyroidism, unspecified; N40.0 Benign prostatic hyperplasia without lower urinary tract symptoms; Z96.651 Presence of right artificial knee joint; I11.0 Hypertensive heart disease with heart failure; Z79.82 Long term (current) use of aspirin; Z79.899 Other long term (current) drug therapy; Z95.1 Presence of aortocoronary bypass graft; Z90.89 Acquired absence of other organs; Z95.810 Presence of automatic (implantable) cardiac defibrillator; Z87.891 Personal history of nicotine dependence; Z88.8 Allergy status to other drugs, medicaments and biological substances
CPT/HCPCS: 36416; 93005; 93010; 94640; C1713; C1776; J0171; J0360; J0690; J1642; J1644; J1815; J1940; J2720; J7050; J7620; S0020

== ENCOUNTER 2022-06-12 18:43 | Inpatient (IN) | payer MEDICARE ==
[~2022-06-12 18:43] MED LIST: Iopamidol-370 76% 500 ML 1 ML ONE
[2022-06-12 19:07] LABS: #Eosinphils 0.4 thou/uL (0.0-0.7); #Lymphocytes 1.3 thou/uL (1.20-3.40); #Monocytes 0.5 thou/uL (0.11-0.59); #Neutrophils 3.4 thou/uL (1.40-6.50); %Basophils 0.2 % (0.0-1.0); %Eosinophils 7.4 % (0.0-10.0); %Monocytes 9.3 % (0.0-10.0); Hemoglobin 7.2 g/dL (14.0-18.0); Mean Corpuscular HGB CONC 31.7 g/dL (32.0-36.0); Mean Corpuscular Hemoglobin 29.1 pg (27.0-31.0); Mean Corpuscular Volume 91.7 fL (78.0-98.0); Mean Platelet Volume 7.9 fL (7.4-10.4); Platelet Count 139 thou/uL (130-400); RBC Distribution Width 14.9 % (11.5-14.5); Red Blood Cell (RBC) Count 2.48 mill/uL (4.70-6.10); White Blood Cell (WBC) Count 5.6 thou/uL (4.8-10.8)
[2022-06-12 19:19] LABS: INR-International Normal Ratio 1.2; Prothrombin Time 15.1 sec (12.0-14.7)
[2022-06-12 19:20] LABS: PTT 36.5 sec (22.9-36.1)
[2022-06-12 19:31] LABS: ALT (SGPT) 9 U/L (8-55); AST (SGOT) 13 U/L (5-34); Albumin 3.3 g/dL (3.4-4.8); Alkaline Phosphatase 116 U/L (40-110); Anion Gap 13 mmol/L (10-20); BUN (Urea Nitrogen) 27 mg/dL (8.4-25.7); Bilirubin, Total 0.7 mg/dL (0.2-1.2); Calc. Creatinine Clearance 0 mL/min (70-130); Calcium 8.7 mg/dL (7.8-10.44); Carbon Dioxide 25 mmol/L (23-31); Chloride 107 mmol/L (98-107); Estimated GFR 51; Globulin 2.5 g/dL (2.4-3.5); Glucose 95 mg/dL (83-110); Potassium 3.9 mmol/L (3.5-5.1); Protein, Total 5.8 g/dL (5.8-8.1); Sodium 141 mmol/L (136-145)
[2022-06-12 21:34] LABS: Bilirubin Negative (Negative); Blood, Urine Negative (Negative); Clarity Clear (Clear); Glucose, Urine (Dipstick) Normal (Negative); Ketone, Urine Negative (Negative); Leukocyte Negative Leu/uL (Negative); Nitrite Negative (Negative); Protein, Urine (Dipstick) Negative (Neg-Trace); Specific Gravity, Urine 1.012 (1.002-1.036); Urobilinogen Normal mg/dL (Less than 2); pH, Urine 5.5 (5.0-9.0)
[2022-06-13] MEDS ORDERED: Acetaminophen 325 MG TAB PO PRN (00:58)
[2022-06-13] MEDS ORDERED: Ondansetron PF 4 MG/2 ML Vial IVP PRN (00:58)
[2022-06-13] MEDS ORDERED: Dextrose 5% in Water 1,000 ML IV PRN (00:58)
[2022-06-13] MEDS ORDERED: Dextrose 50% Abboject 50 ML SYRINGE SLOW IVP PRN (00:58)
[2022-06-13] MEDS ORDERED: Acetaminophen 650 MG Suppository PR PRN (00:58)
[2022-06-13] MEDS ORDERED: HumaLOG 300 UNITS/3 ML VIAL SC PRN ×2 (00:58)
[2022-06-13] MEDS ORDERED: Ondansetron ODT 4 MG TAB PO PRN (00:58)
[2022-06-13] MEDS: Sodium Chloride 0.9% 1,000 ML IV SCH ×2 (03:01→03:49)
[2022-06-13] MEDS: Pantoprazole 40 MG VIAL IVP SCH ×2 (03:49→16:25)
[2022-06-13 04:30] VITALS: BMI 29.4
[2022-06-13 06:28] LABS: #Eosinphils 0.5 thou/uL (0.0-0.7); #Lymphocytes 1.2 thou/uL (1.20-3.40); #Monocytes 0.5 thou/uL (0.11-0.59); #Neutrophils 3.3 thou/uL (1.40-6.50); %Basophils 0.2 % (0.0-1.0); %Eosinophils 9.1 % (0.0-10.0); %Lymphocytes 20.9 % (21.0-51.0); %Monocytes 9.8 % (0.0-10.0); Hemoglobin 7.7 g/dL (14.0-18.0); Mean Corpuscular HGB CONC 32.3 g/dL (32.0-36.0); Mean Corpuscular Hemoglobin 29.2 pg (27.0-31.0); Mean Corpuscular Volume 90.5 fL (78.0-98.0); Mean Platelet Volume 8.1 fL (7.4-10.4); Platelet Count 137 thou/uL (130-400); RBC Distribution Width 14.9 % (11.5-14.5); Red Blood Cell (RBC) Count 2.65 mill/uL (4.70-6.10); White Blood Cell (WBC) Count 5.5 thou/uL (4.8-10.8)
[2022-06-13 06:53] LABS: Anion Gap 12 mmol/L (10-20); BUN (Urea Nitrogen) 24 mg/dL (8.4-25.7); Calc. Creatinine Clearance 52 mL/min (70-130); Calcium 8.4 mg/dL (7.8-10.44); Carbon Dioxide 24 mmol/L (23-31); Chloride 108 mmol/L (98-107); Estimated GFR 54; Glucose 103 mg/dL (83-110); Potassium 3.9 mmol/L (3.5-5.1); Sodium 140 mmol/L (136-145)
[2022-06-13] MEDS: Levothyroxine Sodium 50 MCG TAB PO SCH (09:26)
[2022-06-13 13:00] LABS: SARS-CoV-2 NAA Rapid Test Not Detected (NotDetected)
[2022-06-13] MEDS ORDERED: Lidocaine 1% MPF 2 ML VIAL ONE (13:51)
[2022-06-13] MEDS ORDERED: PROPOFOL 200 MG/20 ML VIAL ONE (13:51)
[2022-06-13] MEDS ORDERED: Ondansetron HCl/PF 4 MG/2 ML Vial IVP PRN (14:25)
[2022-06-13] MEDS ORDERED: Promethazine HCl 25 MG/ML VIAL IVPB PRN (14:25)
[2022-06-13] MEDS ORDERED: Promethazine HCl 25 MG/ML VIAL IM PRN (14:25)
[2022-06-13] MEDS ORDERED: Iopamidol-370 76% 500 ML 1 ML ONE (14:30)
[2022-06-14] MEDS: Pantoprazole 40 MG VIAL IVP SCH ×2 (03:35→09:04)
[2022-06-14 06:24] LABS: #Eosinphils 0.5 thou/uL (0.0-0.7); #Lymphocytes 1.2 thou/uL (1.20-3.40); #Monocytes 0.6 thou/uL (0.11-0.59); #Neutrophils 3.4 thou/uL (1.40-6.50); %Basophils 0.6 % (0.0-1.0); %Lymphocytes 20.4 % (21.0-51.0); Hemoglobin 7.6 g/dL (14.0-18.0); Mean Corpuscular HGB CONC 31.7 g/dL (32.0-36.0); Mean Corpuscular Hemoglobin 28.6 pg (27.0-31.0); Mean Platelet Volume 8.2 fL (7.4-10.4); Platelet Count 142 thou/uL (130-400); Red Blood Cell (RBC) Count 2.66 mill/uL (4.70-6.10); White Blood Cell (WBC) Count 5.6 thou/uL (4.8-10.8)
[2022-06-14 06:54] LABS: Anion Gap 7 mmol/L (10-20); BUN (Urea Nitrogen) 21 mg/dL (8.4-25.7); Calc. Creatinine Clearance 52 mL/min (70-130); Calcium 8.2 mg/dL (7.8-10.44); Carbon Dioxide 25 mmol/L (23-31); Chloride 111 mmol/L (98-107); Estimated GFR 55; Glucose 69 mg/dL (83-110); Sodium 139 mmol/L (136-145)
[2022-06-14] MEDS: Levothyroxine Sodium 50 MCG TAB PO SCH (09:03)
[2022-06-14 12:06] VITALS: BP 158/72; TEMP 97.5
== END 2022-06-14 13:20 | disposition home or self-care (01) | DRG 378 ==
LOC: ERS 18:43 → T4-A 21:01 → OBSVTOIN 06-13 14:54
PROVIDERS: ADMIT Internal Medicine; ATTEND Internal Medicine
PROC: 0DB78ZX Excision of Stomach, Pylorus, Via Natural or Artificial Opening Endoscopic, Diagnostic (ICD-10-PCS; principal; 2022-06-13)
PROC: 30233N1 Transfusion of Nonautologous Red Blood Cells into Peripheral Vein, Percutaneous Approach (ICD-10-PCS; 2022-06-13)
DX: K92.1 Melena (principal); J90 Pleural effusion, not elsewhere classified; Z20.822 Contact with and (suspected) exposure to COVID-19; I25.10 Atherosclerotic heart disease of native coronary artery without angina pectoris; I48.91 Unspecified atrial fibrillation; I10 Essential (primary) hypertension; R91.8 Other nonspecific abnormal finding of lung field; I71.4 Abdominal aortic aneurysm, without rupture; K57.10 Diverticulosis of small intestine without perforation or abscess without bleeding; D50.0 Iron deficiency anemia secondary to blood loss (chronic); K29.80 Duodenitis without bleeding; Z95.1 Presence of aortocoronary bypass graft; Z88.8 Allergy status to other drugs, medicaments and biological substances; Z79.899 Other long term (current) drug therapy; Z79.82 Long term (current) use of aspirin; Z79.84 Long term (current) use of oral hypoglycemic drugs; Z98.890 Other specified postprocedural states; Z87.11 Personal history of peptic ulcer disease; Z86.010 Personal history of colon polyps; Z79.890 Hormone replacement therapy; Z79.01 Long term (current) use of anticoagulants
CPT/HCPCS: 36415; 36416; 36430; 71260; 74177; 80048; 80053; 81003; 85025; 85610; 85730; 86850; 86900; 86901; 88305; 93005; 96365; 96375; C9113; G0378; J2704; J7050; P9016; Q9967; U0002

== ENCOUNTER 2022-08-13 07:46 | Day surgery (SDC) | payer MEDICARE ==
[2022-08-12 09:11] VITALS: BMI 28.5
[2022-08-13] MEDS ORDERED: Ketamine 50 MG/ML (10ML VIAL) ONE (08:58)
[2022-08-13] MEDS ORDERED: PROPOFOL 200 MG/20 ML VIAL ONE (09:03)
== END 2022-08-13 12:18 | disposition home or self-care (01) ==
LOC: SDC 07:46
PROVIDERS: ATTEND Internal Medicine
PROC: 0D5H8ZZ Destruction of Cecum, Via Natural or Artificial Opening Endoscopic (ICD-10-PCS; principal; 2022-08-13)
PROC: 0DBP8ZX Excision of Rectum, Via Natural or Artificial Opening Endoscopic, Diagnostic (ICD-10-PCS; 2022-08-13)
DX: K62.1 Rectal polyp (principal); Q27.33 Arteriovenous malformation of digestive system vessel; K57.30 Diverticulosis of large intestine without perforation or abscess without bleeding; K64.8 Other hemorrhoids; D62 Acute posthemorrhagic anemia; Z86.010 Personal history of colon polyps; Z79.82 Long term (current) use of aspirin; Z79.84 Long term (current) use of oral hypoglycemic drugs; Z79.890 Hormone replacement therapy; Z79.899 Other long term (current) drug therapy; Z88.8 Allergy status to other drugs, medicaments and biological substances; Z95.810 Presence of automatic (implantable) cardiac defibrillator; Z95.1 Presence of aortocoronary bypass graft
CPT/HCPCS: 88305; J2704